=== PATIENT | male | born 1985 | race Caucasian/White ===

== ENCOUNTER 2023-01-18 19:23 | Emergency (ER) | payer SELFPAY ==
[~2023-01-18] VITALS: Ht 177.8 cm; Wt 99.8 kg
[2023-01-18] MEDS ORDERED: HYDR-4303 PO (20:44)
[2023-01-18] MEDS ORDERED: HYDROCODONE/APAP 5/325MG TABLET ONE (20:59)
[2023-01-18] MEDS: HYDROCODONE/APAP 5/325MG TABLET PO ONE (21:03)
[2023-01-18 21:04] VITALS: BP 145/109; TEMP 97.6; O2SAT 99
== END 2023-01-18 21:04 | disposition home or self-care (01) ==
LOC: ER 19:28
DX: S33.5XXA Sprain of ligaments of lumbar spine, initial encounter (principal); S40.012A Contusion of left shoulder, initial encounter; S20.212A Contusion of left front wall of thorax, initial encounter; S09.8XXA Other specified injuries of head, initial encounter; E11.9 Type 2 diabetes mellitus without complications; V89.2XXA Person injured in unspecified motor-vehicle accident, traffic, initial encounter; Y93.89 Activity, other specified; Y92.89 Other specified places as the place of occurrence of the external cause; Y99.8 Other external cause status
CPT/HCPCS: 70450-TC; 71045-TC; 72110-TC; 73030-TC